=== PATIENT | female | born 1965 | race Caucasian/White ===

== ENCOUNTER 2019-06-20 05:40 | Inpatient (IN) | payer BC ==
[~2019-06-20] VITALS: Ht 170.2 cm; Wt 111.0 kg
[2019-06-20] VITALS (20 sets, daily range): BP systolic 126–174; BP diastolic 58–83; PULSE 83–96; RESP 15–22; Ht 170.2 cm; Wt 111.0 kg
[~2019-06-20 05:40] MED LIST: ALBU8.5H8 INH; BENA40TA56 PO; HYDR-4011 PO; IBUP-1542 PO; LEVO50TA71 PO; METO-448 PO; MONT10TA21 PO; ONDA4TAB8 PO
[2019-06-20] MEDS ORDERED: POLYMYXIN/BACITRACIN 1L IRRIG ONE ×2 (06:55→13:10)
--- NOTE | 2019-06-20 07:08 | PREAC ---
Date/Time of Note Date/Time of Note DATE: 06/20/19 TIME: 07:06 Anesthesia Eval and Record Evaluation Time Pre-Procedure Interview DATE: 06/20/19 TIME: 07:06 Age 54 Sex female NPO: 8 hrs Preoperative diagnosis right ankle oa Planned procedure RIGHT TOTAL ANKLE ARTHROPLASTY Past Medical History Past Medical History: Includes Cardio: HTN Endo: Hypothyroid Pulm: Asthma GI: Obesity Surgery & Anesthesia Issues No known issue Meds Anticoagulation: No Beta Ham within 24 hr: Yes Reported Medications Benazepril Hcl* (Benazepril Hcl*) 40 Mg Tablet, 40 MG PO DAILY, #30 TAB 06/20/19 Montelukast Sodium* (Singulair*) 10 Mg Tablet, 10 MG PO QHS, #30 TAB 06/20/19 Ibuprofen* (Motrin*) 600 Mg Tab, 600 MG PO Q6H PRN for PAIN, TAB 06/20/19 Levothyroxine Sodium* (Levoxyl*) 50 Mcg Tablet, 50 MCG PO BEFORE BREAKFAST, #30 TAB 06/20/19 Metoprolol Tartrate* (Lopressor*) 25 Mg Tab, 25 MG PO BID, #60 TAB 06/20/19 Albuterol Sulfate* (Proair HFA*) 8.5 Gm Hfa.aer.ad, 2 PUFF INH Q4H PRN for WHEEZING AND SOB, #1 INHALER 06/20/19 Current Medications Cefazolin Sodium/ Dextrose 50 ml @ 100 mls/hr PREOP IVPB ; Start 06/20/19 at 06:00; Stop 06/20/19 at 19:00 Meds reviewed: Yes Allergies Coded Allergies: No Known Allergy (Unverified , 06/20/19) Allergies Reviewed: Yes Labs/Studies Labs Reviewed: Reviewed by anesthesiologist test: N/A Studies: ECG (SR), CXR (NAPD) Pre-procedure Exam Last vitals Vital Signs Date Temp Pulse Resp B/P (MAP) Pulse Ox O2 O2 Flow FiO2 Time Delivery Rate 06/20/19 98.0 84 18 174/68 98 05:55 (103) Airway: Adequate mouth opening, Adequate thyromental dist Mallampati: Mallampati II Teeth: Normal Lung: Normal Heart: Normal ASA Physical Status ASA physical status: 2 Emergency: None Planned Anesthetic General/MAC: ETT Nerve block: Femoral (right), Sciatic (right) Planned Pain Management Single shot nerve block, Parenteral pain med Pre-operative Attestations Prior to commencing anesthesia and surgery, the patient was re-evaluated, there was verification of: *The patient's identity *The results of appropriate recent lab work and preoperative vital signs *The above evaluation not changing prior to induction *Anesthetic plan, risk benefits, alternative and complications discussed with patient/family; questions answered; patient/family understands, accepts and wishes to proceed. Rohith Moreira M.D. Jun 20, 2019 07:08
[2019-06-20] MEDS ORDERED: NEOSTIGMINE 3 MG/3 ML SYRINGE ONE (07:12)
[2019-06-20] MEDS ORDERED: GLYCOPYRROLATE 0.4 MG INJ ONE (07:12)
[2019-06-20] MEDS ORDERED: ROCURONIUM 50 MG INJ ONE (07:12)
[2019-06-20] MEDS ORDERED: CEFAZOLIN 1 GM INJ ONE ×2 (07:12→11:40)
[2019-06-20] MEDS ORDERED: PROPOFOL 20 ML ONE (07:12)
[2019-06-20] MEDS ORDERED: DEXAMETHASONE 4 MG/ML 5 ML INJ ONE (07:14)
[2019-06-20] MEDS ORDERED: FENTAnyl 50 MCG/ML VIAL ONE ×2 (07:14→08:32)
[2019-06-20] MEDS ORDERED: MIDAZOLAM 1 MG/ML 2 ML INJ ONE (07:14)
[2019-06-20] MEDS ORDERED: ONDANSETRON 4 MG INJ ONE (07:14)
[2019-06-20] MEDS ORDERED: ROPIVACAINE 0.5 % 30 ML VIAL ONE (07:15)
[2019-06-20] MEDS ORDERED: IPRATROPIUM (NEB) 0.5 MG/2.5 ML AMP HHN PRN (07:30)
[2019-06-20] MEDS ORDERED: DIPHENHYDRAMINE 50 MG INJ IV PRN (07:30)
[2019-06-20] MEDS: LACTATED RINGER'S 1,000 ML IV SCH ×2 (07:30→20:50)
[2019-06-20] MEDS ORDERED: MEPERIDINE 25 MG INJ IV PRN (07:30)
[2019-06-20] MEDS ORDERED: ALBUTEROL 0.083% (NEB) 2.5 MG/3 ML AMP HHN PRN (07:30)
[2019-06-20] MEDS ORDERED: EPHEDrine 25 MG/5 ML SYG IV PRN (07:30)
[2019-06-20] MEDS ORDERED: LABETALOL HCL 20MG INJ IV PRN (07:30)
[2019-06-20] MEDS ORDERED: FENTAnyl 50 MCG/ML VIAL IV PRN ×3 (07:30)
[2019-06-20] MEDS ORDERED: ONDANSETRON 4 MG INJ IV PRN (07:30)
[2019-06-20] MEDS ORDERED: OXYCODONE/ACETAMINOPHEN (5/325) TAB PO PRN ×2 (07:30)
[2019-06-20] MEDS ORDERED: MIDAZOLAM 1 MG/ML 2 ML INJ IV PRN (07:30)
[2019-06-20] MEDS ORDERED: hydrALAzine 20 MG INJ IV PRN ×2 (07:30→18:30)
[2019-06-20] MEDS ORDERED: TRIMETHOBENZAMIDE 100 MG/ML VIAL IM PRN (07:30)
[2019-06-20] MEDS ORDERED: HYDROmorphONE 1 MG/5 ML IV SYRINGE IV PRN ×3 (07:30)
--- NOTE | 2019-06-20 07:32 | HPN ---
Date/Time of Note Date/Time of Note DATE: 06/20/19 TIME: 07:32 Interval H&P Admission Note Pt. seen H&P reviewed: No system changes KATHERYN STAFFORD DPM Jun 20, 2019 07:32
[2019-06-20] MEDS ORDERED: LABETALOL HCL 20MG INJ ONE (09:45)
[2019-06-20] MEDS ORDERED: POLYMYXIN/BACITRACIN 1L IRRIG IRR ONE (11:06)
[2019-06-20] MEDS ORDERED: SUGAMMADEX SODIUM 200 MG/2 ML VIAL IV ONE (12:41)
--- NOTE | 2019-06-20 13:25 | PAC ---
Date/Time of Note Date/Time of Note DATE: 06/20/19 TIME: 13:25 Post-Anesthesia Notes Post-Anesthesia Note Last documented vital signs Vital Signs Date Temp Pulse Resp B/P (MAP) Pulse Ox O2 O2 Flow FiO2 Time Delivery Rate 06/20/19 98.0 84 18 174/68 98 05:55 (103) Activity: WNL Respiratory function: WNL Cardiovascular function: WNL Mental status: Baseline Pain reasonably controlled: Yes Hydration appropriate: Yes Nausea/Vomiting absent: Yes Rohith Moreira M.D. Jun 20, 2019 13:25
--- NOTE | 2019-06-20 13:31 | OPR ---
Date/Time of Note Date/Time of Note DATE: 06/20/19 TIME: 13:31 Operative Report Procedure Date: Jun 20, 2019 Preoperative Diagnosis Severe right ankle degenerative joint disease Right ankle equinus Right ankle pain Right ankle edema Postoperative Diagnosis Severe right ankle degenerative joint disease Right ankle equinus Right ankle pain Right ankle edema Operation/Procedure Performed Right total ankle replacement Use and interpretation of fluoroscopy Application of posterior splint right lower extremity Right Achilles tendon lengthening Surgeon see signature line Resume Writer None Anesthesia Type: general Estimated Blood Loss: 10 - 50 ml's Transfusion none Specimen Bone from the right ankle joint Grafts/Implants none Complications none Pt Condition Post Procedure: stable Disposition: PACU Indications This is a pleasant 54-year-old female patient who has been suffering with severe right ankle degenerative joint disease, pain, disability and gait disturbance for several years getting worse along with equinus deformity of the ankle joint. Proposed surgery is total ankle replacement with tendo Achilles lengthening. Risks and complications of this type of surgery was discussed with patient in great detail. Risks and complications discussed include, but are not limited to, postoperative infection, postoperative pain, chronic pain and disability, hardware failure, malunion, nonunion, delayed union, failure of surgery to correct the problem, need for additional surgical procedures, toenail changes, onychomycosis, deep venous thrombosis, gait disturbance, problems with shoegear, limitation of activities, limb loss and loss of life. Patient understands the discussion and agrees to the procedure. An informed consent was obtained, signed and placed in the chart. No guarantee or warrantee was given or implied as to the outcome of the procedure either in verbal or written form. Procedure Description The patient was seen in the preoperative area. Proposed surgery was discussed with patient in great detail. Opportunity was given to patient to ask questions and all questions were answered. Patient acknowledges understanding of the discussion and agrees to the procedure. The patient was then taken to the operating room and was placed on the operating table in the supine position. Patient was placed under general anesthesia. A thigh tourniquet was applied to the right thigh. The circulating nurse call the timeout and everyone agreed. A 10 pound bag was inserted under the right hip to rotate the foot and ankle. An Esmarch bandage was utilized to exsanguinate the right lower extremity and the tourniquet was inflated to 300 mmHg pressure. Attention was directed to the anterior right ankle. A 12 cm incision was made over the anterior right ankle using a #10 blade. Bleeders were cauterized as necessary. Dissection was deepened carefully with care being taken to identify and protect vital neurovascular structures. Superficial nerves were identified and protected. Dissection continued deep to the anterior retinaculum of the ankle joint. This was incised and the. I went ahead and identified the tibialis anterior tendon, extensor digitorum longus tendon and extensor hallucis longus tendon. I went ahead and I dissected out the neurovascular bundle and protected the neurovascular bundle along with the EHL and EDL laterally and the tibialis anterior medially. Periosteal dissection continued and the ankle joint was dissected and fully exposed. There was significant osteophytic changes noted. There was significant degenerative joint disease noted. There was significant loss of joint space and loss of range of motion. A pin was placed into the tibial tuberosity and the jig for STAR ankle replacement was placed. The cutting guide was placed over the anterior ankle monica int. Intraoperative arthroscopy was used for placement verification. The cutting guide was pinned into place and the distal tibial cut was made. The cutting guide was partially dismantled and I used a osteotome and mallet to complete the cutting guide. All bony remnants were then debrided out of the joint. The joint was prepped for insertion of the talar component. Intraopera tive fluoroscopic guidance was used throughout the procedure. A trial talus was inserted and was found to be fitting very nicely without any gaps. I went ahead and I inserted the talar component at this point and I impacted the talar component onto the talus. Next, a second guide was inserted for the distal tibia drill holes. All instrumentation was then removed along with the pain in the tibial tuberosity. Intraoperative fluoroscopic guidance was used for placement verification. Once verified, 2 large holes were drilled at the distal aspect of the tibia. The tibial plate was then inserted. I trialed a size 6, 7 and 8 Parley. The size 8 Ryann was found to be a good solid interface. Size 8 Parley was inserted. Range of motion was checked and was found to be limited in dorsiflexion. Intraoperative fluoroscopic pictures were obtained. The wound was flushed with copious muscle sterile normal saline. The periosteal layer was closed using 3-0 Vicryl suture. The ankle anterior joint capsule was closed using 2-0 Vicryl. The anterior retinaculum along with the tendon sheaths were closed using 4-0 Vicryl suture. Subcutaneous layer was closed using 4-0 Vicryl suture and the skin was closed using 4-0 Monocryl in subcuticular stitch pattern. Steri-Strips were applied. A temporary OpSite was applied to the incision site. The tourniquet was deflated at this time and prompt hyperemic response was noted to digits of the right foot. The second part of surgery patient will need to be repositioned. Next, the patient was repositioned on the left side lateral for the second portion of the surgery which is the Achilles tendon lengthening. The right foot was then re-scrubbed, prepped and draped in the usual aseptic manner. A second timeout was called by the circulating nurse and again everyone agreed. An Esmarch bandage was utilized to exsanguinate the right lower extremity and the tourniquet was inflated to 300 mmHg pressure. Attention was directed to the posterior aspect of the right lower leg and Achilles tendon area. A 9 cm incision was made directly over the Achilles tendon using a #10 blade. Bleeders were cauterized as necessary. Vital neurovascular structures were identified and protected. Dissection continued to the para-thenar of the Achilles tendon. The peritenon was incised and the tendon was exposed. The tendon was then incised midline and the distal medial and proximal lateral portions were cut as well. Deep tendon was then lengthened about 1 inch which allowed for the ankle to be dorsiflexed to about 15. The tendon was then sutured back in this new position using modified Apolonia suture technique and 2-0 Ethibond suture. Next, the wound was flushed with copious muscle sterile normal saline. The para thenar was reapproximated using 4-0 Vicryl suture. Subcutaneous layer was closed using 4-0 Vicryl suture and the skin was closed using 4-0 Monocryl in simple suture technique. Sterile dressing was applied to the right lower extremity. The tourniquet was deflated at this time and prompt hyperemic response was noted to digits of the right foot. The foot and ankle was placed in a 90 splint with a double splint. The patient tolerate procedure anesthesia well. She was transferred to recovery room with vital signs stable and vascular status intact to right lower extremity. Patient will be admitted to the hospital for pain management for the next couple of days. I have already contacted the hospitalist for admission and orders. Patient is to ray nonweightbearing on the right lower extremity. Jimmy riley will be followed up in the hospital. KATHERYN STAFFORD DPM Jun 20, 2019 13:31
--- NOTE | 2019-06-20 13:31 | SIPON ---
Date/Time of Note Date/Time of Note DATE: 06/20/19 TIME: 13:29 Operative Report Preoperative Diagnosis Severe right ankle degenerative joint disease Right ankle equinus Right ankle pain Right ankle edema Postoperative Diagnosis Severe right ankle degenerative joint disease Right ankle equinus Right ankle pain Right ankle edema Operation/Procedure Performed Right total ankle replacement Use and interpretation of fluoroscopy Application of posterior splint right lower extremity Right Achilles tendon lengthening Surgeon see signature line casino assistant manager None Anesthesia: general Estimated blood loss: 10 - 50 ml's Transfusion Required none Specimen Bone and joint right ankle Grafts/Implants none Complications none KATHERYN STAFFORD DPM Jun 20, 2019 13:31
[2019-06-20] MEDS: CEFAZOLIN 2 GM/50 ML (PMX) 50 ML IVPB SCH (13:34)
--- NOTE | 2019-06-20 18:31 | CONS ---
Assessment/Plan Assessment/Plan Assessment/Plan (Daily) Assessment and plan: 54-year-old female past medical history of hyperthyroidism, hypertension, arthritis, who was brought in for elective right ankle arthro plasty. # Right ankle arthroplasty: Again patient having minimal pain symptoms now -Continue postoperative care per primary podiatry team including pain control medications, labs, fluids, any physical therapy that may be needed # HTN: Presently stable -Monitor, add IV hydralazine as needed # Hyperthyroidism: Continue monitor for now # Prior arthritis- see above, continue physical therapy and pain control medications We will continue to follow along with you. Consultation Date/Type/Reason Admit Date/Time Jun 20, 2019 at 05:40 Date/Time of Note DATE: 06/20/19 TIME: 18:31 Hx of Present Illness 54-year-old female past medical history of hyperthyroidism, hypertension, arthritis, who was brought in for elective right ankle arthroplasty. Patient underwent the procedure earlier today. Apparently this is the third surgery she has had on the right ankle performed. This was performed today by the podiatry team. Patient presently has some right ankle pain symptoms, but presently she denies any upper or lower GI bleeding, nausea vomiting, fever chills, diarrhea constipation, chest pain or shortness of breath. Past Medical History Home Meds Reported Medications Benazepril Hcl* (Benazepril Hcl*) 40 Mg Tablet, 40 MG PO DAILY, #30 TAB 06/20/19 Montelukast Sodium* (Singulair*) 10 Mg Tablet, 10 MG PO QHS, #30 TAB 06/20/19 Ibuprofen* (Motrin*) 600 Mg Tab, 600 MG PO Q6H PRN for PAIN, TAB 06/20/19 Levothyroxine Sodium* (Levoxyl*) 50 Mcg Tablet, 50 MCG PO BEFORE BREAKFAST, #30 TAB 06/20/19 Metoprolol Tartrate* (Lopressor*) 25 Mg Tab, 25 MG PO BID, #60 TAB 06/20/19 Albuterol Sulfate* (Proair HFA*) 8.5 Gm Hfa.aer.ad, 2 PUFF INH Q4H PRN for WHEEZING AND SOB, #1 INHALER 06/20/19 Medications Current Medications Cefazolin Sodium/ Dextrose 50 ml @ 100 mls/hr PREOP IVPB ; Start 06/20/19 at 06:00; Stop 06/20/19 at 19:00 Lactated Ringer's 1,000 ml @ 75 mls/hr [id number] IV ; Start 06/20/19 at 07:30 Cefazolin Sodium 50 ml @ 100 mls/hr ONCE IVPB ; Start 06/20/19 at 20:00; Stop 06/20/19 at 20:29 Oxycodone/ Acetaminophen (Endocet (10/ 325)) 1 tab Q4H PRN PO MODERATE PAIN LEVEL 4-6; Start 06/20/19 at 14:30 Hydralazine HCl (Apresoline) 10 mg Q6H PRN IV ELEVATED BLOOD PRESSURE; Start 06/20/19 at 18:30; Status UNV Morphine Sulfate (morphine) 1 mg Q4H PRN IV SEVERE PAIN LEVEL 7-10; Start 06/20/19 at 18:30; Status UNV Allergies: Coded Allergies: No Known Allergy (Unverified , 06/20/19) Past Surgical History Past Surgical Hx: other (To prior ankle surgeries) Social History Alcohol Use: occasionally Smoking Status: Never smoker Drug Use: none Exam/Review of Systems Exam Vitals Vital Signs Date Temp Pulse Resp B/P (MAP) Pulse Ox O2 O2 Flow FiO2 Time Delivery Rate 06/20/19 98.6 95 16 142/68 97 Nasal 17:00 (92) Cannula Exam Constitutional: lying in bed, no acute distress Head: normocephalic, atraumatic Eyes: EOMI, PERRL Respiratory: clear to auscultation, normal air movement Cardiovascular: S1, S2 heard Gastrointestinal: soft, nontender, nondistended,, no rebound or guarding, normal bowel sounds Extremities: decreased range of motion right lower extremity and ankle area Neuro: No focal deficits Medications Medication Current Medications Cefazolin Sodium/ Dextrose 50 ml @ 100 mls/hr PREOP IVPB ; Start 06/20/19 at 06:00; Stop 06/20/19 at 19:00 Lactated Ringer's 1,000 ml @ 75 mls/hr [id number] IV ; Start 06/20/19 at 07:30 Cefazolin Sodium 50 ml @ 100 mls/hr ONCE IVPB ; Start 06/20/19 at 20:00; Stop 06/20/19 at 20:29 Oxycodone/ Acetaminophen (Endocet (10/ 325)) 1 tab Q4H PRN PO MODERATE PAIN LEVEL 4-6; Start 06/20/19 at 14:30 Hydralazine HCl (Apresoline) 10 mg Q6H PRN IV ELEVATED BLOOD PRESSURE; Start 06/20/19 at 18:30; Status UNV Morphine Sulfate (morphine) 1 mg Q4H PRN IV SEVERE PAIN LEVEL 7-10; Start 06/20/19 at 18:30; Status UNV MIGDALIA MCGOVERN Jun 20, 2019 18:31
[2019-06-20] MEDS: morphine 2 MG INJ IV PRN (18:59)
[2019-06-20] MEDS ORDERED: CEFAZOLIN 1 GM/50 ML (PMX) 50 ML IVPB SCH (20:00)
[2019-06-20] MEDS: OXYCODONE/ACETAMINOPHEN (10/325) TAB PO PRN (20:21)
[2019-06-21] VITALS: BP 137/65; PULSE 81; RESP 18
[2019-06-21] MEDS: OXYCODONE/ACETAMINOPHEN (10/325) TAB PO PRN ×4 (00:48→21:01)
[2019-06-21] MEDS: LACTATED RINGER'S 1,000 ML IV SCH ×2 (00:52→19:29)
[2019-06-21 07:36] VITALS: BP 146/65; PULSE 88; RESP 17
--- NOTE | 2019-06-21 12:24 | PN ---
Date/Time of Note Date/Time of Note DATE: 06/21/19 TIME: 12:22 Assessment/Plan VTE Prophylaxis Risk score (from Nsg)>0 risk: 10 SCD applied (from Nsg): Yes Pharmacological prophylaxis: other Lines/Catheters IV Catheter Type (from Nrsg): Peripheral IV Urinary Cath still in place: No Assessment/Plan Hospital Course S: Patient had no acute events overnight. O: VS - see below PE: Constitutional: lying in bed, no acute distress Head: normocephalic, atraumatic Eyes: EOMI, PERRL Respiratory: clear to auscultation, normal air movement Cardiovascular: S1, S2 heard Gastrointestinal: soft, nontender, nondistended,, no rebound or guarding, normal bowel sounds Extremities: decreased range of motion right lower extremity and ankle area Neuro: No focal deficits Assessment and plan: 54-year-old female past medical history of hyperthyroidism, hypertension, arthritis, who was brought in for elective right ankle arthroplasty. # Right ankle arthroplasty: Postop day #1, worked with physical therapy earlier today. Still improving. -Continue postoperative care per podiatry team including pain control medications, labs, fluids, any physical therapy that may be needed # HTN: Presently stable -Monitor, IV hydralazine as needed # Hyperthyroidism: Continue monitor for now # Prior arthritis- see above, continue physical therapy and pain control medications Dispo: Likely home when cleared by podiatry team and will need home health nursing for a walker which we will order for case management to set up Results 24hrs Laboratory Tests Test 06/21/19 07:17 Lab Scanned Report REFERENCE LAB Exam/Review of Systems Exam Vitals Vital Signs Date Temp Pulse Resp B/P (MAP) Pulse Ox O2 O2 Flow FiO2 Time Delivery Rate 06/21/19 97.9 88 17 146/65 96 07:36 (92) 06/20/19 Nasal 17:00 Cannula Intake and Output 06/20/19 06/20/19 06/21/19 1515:00 23:00 07:00 IntakeIntake Total 2200 ml 250 ml 1300 ml OutputOutput Total 45 ml 350 ml BalanceBalance 2155 ml -100 ml 1300 ml Results Results 24hrs Laboratory Tests Test 06/21/19 07:17 Lab Scanned Report REFERENCE LAB Medications Medication Current Medications Lactated Ringer's 1,000 ml @ 75 mls/hr [id number] IV Last administered on 06/21/19at 00:52; Admin Dose 75 MLS/HR; Start 06/20/19 at 07:30 Oxycodone/ Acetaminophen (Endocet (10/ 325)) 1 tab Q4H PRN PO MODERATE PAIN LEVEL 4-6 Last administered on 06/21/19at 11:18; Admin Dose 1 TAB; Start 06/20/19 at 14:30 Hydralazine HCl (Apresoline) 10 mg Q6H PRN IV ELEVATED BLOOD PRESSURE; Start 06/20/19 at 18:30 Morphine Sulfate (morphine) 1 mg Q4H PRN IV SEVERE PAIN LEVEL 7-10 Last administered on 06/20/19at 18:59; Admin Dose 1 MG; Start 06/20/19 at 18:30 Ondansetron HCl (Zofran Inj) 4 mg Q6H PRN IV NAUSEA AND/OR VOMITING; Start 06/21/19 at 12:30 Acetaminophen (Tylenol Tab) 650 mg Q6H PRN PO MILD PAIN(1-3)OR ELEVATED TEMP; Start 06/21/19 at 12:30 Famotidine (Pepcid) 20 mg DAILY PO ; Start 06/21/19 at 12:30 MIGDALIA MCGOVERN Jun 21, 2019 12:24
[2019-06-21] MEDS ORDERED: ONDANSETRON 4 MG INJ IV PRN (12:30)
[2019-06-21] MEDS ORDERED: ACETAMINOPHEN 325 MG TAB PO PRN (12:30)
[2019-06-21] MEDS: FAMOTIDINE 20 MG TAB PO SCH (13:35)
[2019-06-21] MEDS: morphine 2 MG INJ IV PRN ×2 (13:38→22:16)
[2019-06-21 14:24] VITALS: BP 117/78; PULSE 84; RESP 17
[2019-06-21 19:45] VITALS: BP 171/79; PULSE 83; RESP 18
--- NOTE | 2019-06-21 23:58 | PN ---
Date/Time of Note Date/Time of Note DATE: 06/21/19 TIME: 23:57 Assessment/Plan Lines/Catheters IV Catheter Type (from Nrsg): Peripheral IV Hernandez in Place (from Nrsg): No Assessment/Plan Problems: (1) H/O total ankle replacement (2) Obesity Assessment/Plan Patient to continue nonweightbearing on the right foot. PT to evaluate for nonweightbearing assistance in ambulation. Continue pain management at this time. Subjective 24 Hr Interval Summary Postop day 1 status post right ankle total ankle replacement with tendo Achilles lengthening. Doing well. Reports pain is controlled and denies fever chills nausea or vomiting. Denies chest pain and shortness of breath. Constitutional: no complaints Pain Control: well controlled Exam/Review of Systems Vital Signs Vitals Exam Free Text/Dictation Patient is moderately obese laying supine in bed in no acute distress. Bandaging was removed along with posterior splint. Sutures are intact and incision is well coapted. Edema present. No erythema and no bleeding or pus. Labs reviewed. Imaging reviewed. KATHERYN STAFFORD DPM Jun 21, 2019 23:58
[2019-06-22] MEDS: OXYCODONE/ACETAMINOPHEN (10/325) TAB PO PRN ×4 (02:05→19:44)
[2019-06-22 02:45] VITALS: BP 156/70; PULSE 84; RESP 20
[2019-06-22] MEDS: LACTATED RINGER'S 1,000 ML IV SCH (06:59)
[2019-06-22 07:19] VITALS: BP 159/69; PULSE 81; RESP 20
[2019-06-22] MEDS: FAMOTIDINE 20 MG TAB PO SCH (09:30)
[2019-06-22] MEDS: morphine 2 MG INJ IV PRN ×3 (09:33→22:50)
--- NOTE | 2019-06-22 13:17 | PN ---
Date/Time of Note Date/Time of Note DATE: 06/22/19 TIME: 13:16 Assessment/Plan VTE Prophylaxis Risk score (from Nsg)>0 risk: 8 SCD applied (from Nsg): Yes Pharmacological prophylaxis: other Lines/Catheters IV Catheter Type (from Nrsg): Peripheral IV Urinary Cath still in place: No Assessment/Plan Hospital Course S: Patient worked with physical therapy yesterday and today. Still waiting for official note from the podiatry team. O: VS - see below PE: Constitutional: lying in bed, no acute distress Head: normocephalic, atraumatic Eyes: EOMI, PERRL Respiratory: clear to auscultation, normal air movement Cardiovascular: S1, S2 heard Gastrointestinal: soft, nontender, nondistended,, no rebound or guarding, normal bowel sounds Extremities: decreased range of motion right lower extremity and ankle area Neuro: No focal deficits Assessment and plan: 54-year-old female past medical history of hyperthyroidism, hypertension, arthritis, who was brought in for elective right ankle arthroplasty. # Right ankle arthroplasty: Postop day # 2, worked with physical therapy earlier. Slowly improving. -Continue postoperative care per podiatry team including pain control medications, labs, fluids, any physical therapy that may be needed # HTN: Presently stable -Monitor, IV hydralazine as needed # Hyperthyroidism: Continue monitor for now # Prior arthritis- see above, continue physical therapy and pain control medications Dispo: Likely home when cleared by podiatry team and will need home health nurs ing for a walker which we will order for case management to set up Result Diagram: 06/21/19 1317 06/21/19 1317 Results 24hrs Laboratory Tests Test 06/21/19 13:17 06/21/19 13:18 White Blood Count 12.4 H Red Blood Count 3.59 L Hemoglobin 9.2 L Hematocrit 29.7 L Mean Corpuscular Volume 82.7 Mean Corpuscular Hemoglobin 25.6 L Mean Corpuscular Hemoglobin Concent 31.0 L Red Cell Distribution Width 16.7 H Platelet Count 174 Mean Platelet Volume 10.3 Immature Granulocytes % 0.300 Neutrophils % 79.4 H Lymphocytes % 16.3 Monocytes % 3.8 Eosinophils % 0.0 Basophils % 0.2 Nucleated Red Blood Cells % 0.0 Immature Granulocytes # 0.040 H Neutrophils # 9.8 H Lymphocytes # 2.0 Monocytes # 0.5 Eosinophils # 0.0 Basophils # 0.0 Nucleated Red Blood Cells # 0.0 Sodium Level 140 Potassium Level 3.7 Chloride Level 106 Carbon Dioxide Level 27 Anion Gap 7 Blood Urea Nitrogen 11 Creatinine 0.53 Est Glomerular Filtrat Rate mL/min > 60 Glucose Level 115 Calcium Level 8.4 Phosphorus Level 3.3 Magnesium Level 2.0 Exam/Review of Systems Exam Vitals Vital Signs Date Temp Pulse Resp B/P (MAP) Pulse Ox O2 O2 Flow FiO2 Time Delivery Rate 06/22/19 98.5 81 20 159/69 96 07:19 (99) 06/20/19 Nasal 17:00 Cannula Intake and Output 06/21/19 06/21/19 06/22/19 1515:00 23:00 07:00 IntakeIntake Total 700 ml 700 ml BalanceBalance 700 ml 700 ml Results Results 24hrs Laboratory Tests Test 06/21/19 13:17 06/21/19 13:18 White Blood Count 12.4 H Red Blood Count 3.59 L Hemoglobin 9.2 L Hematocrit 29.7 L Mean Corpuscular Volume 82.7 Mean Corpuscular Hemoglobin 25.6 L Mean Corpuscular Hemoglobin Concent 31.0 L Red Cell Distribution Width 16.7 H Platelet Count 174 Mean Platelet Volume 10.3 Immature Granulocytes % 0.300 Neutrophils % 79.4 H Lymphocytes % 16.3 Monocytes % 3.8 Eosinophils % 0.0 Basophils % 0.2 Nucleated Red Blood Cells % 0.0 Immature Granulocytes # 0.040 H Neutrophils # 9.8 H Lymphocytes # 2.0 Monocytes # 0.5 Eosinophils # 0.0 Basophils # 0.0 Nucleated Red Blood Cells # 0.0 Sodium Level 140 Potassium Level 3.7 Chloride Level 106 Carbon Dioxide Level 27 Anion Gap 7 Blood Urea Nitrogen 11 Creatinine 0.53 Est Glomerular Filtrat Rate mL/min > 60 Glucose Level 115 Calcium Level 8.4 Phosphorus Level 3.3 Magnesium Level 2.0 Medications Medication Current Medications Lactated Ringer's 1,000 ml @ 75 mls/hr [id number] IV Last administered on 06/22/19at 06:59; Admin Dose 75 MLS/HR; Start 06/20/19 at 07:30 Oxycodone/ Acetaminophen (Endocet (10/ 325)) 1 tab Q4H PRN PO MODERATE PAIN LEVEL 4-6 Last administered on 06/22/19 06:54; Admin Dose 1 TAB; Start 06/20/19 at 14:30 Hydralazine HCl (Apresoline) 10 mg Q6H PRN IV ELEVATED BLOOD PRESSURE Last administered on 06/21/19at 21:08; Admin Dose 10 MG; Start 06/20/19 at 18:30 Morphine Sulfate (morphine) 1 mg Q4H PRN IV SEVERE PAIN LEVEL 7-10 Last admini stered on 06/22/19at 09:33; Admin Dose 1 MG; Start 06/20/19 at 18:30 Ondansetron HCl (Zofran Inj) 4 mg Q6H PRN IV NAUSEA AND/OR VOMITING; Start 06/21/19 at 12:30 Acetaminophen (Tylenol Tab) 650 mg Q6H PRN PO MILD PAIN(1-3)OR ELEVATED TEMP; Start 06/21/19 at 12:30 Famotidine (Pepcid) 20 mg DAILY PO Last administered on 06/22/19at 09:30; Admin Dose 20 MG; Start 06/21/19 at 12:30 MIGDALIA MCGOVERN Jun 22, 2019 13:17
[2019-06-22 15:51] VITALS: BP 164/72; PULSE 84; RESP 20
[2019-06-22 19:47] VITALS: BP 145/80; PULSE 74; RESP 18
[2019-06-23] MEDS: OXYCODONE/ACETAMINOPHEN (10/325) TAB PO PRN ×4 (02:27→17:00)
[2019-06-23 02:43] VITALS: BP 135/80; PULSE 80; RESP 18
[2019-06-23 08:28] VITALS: BP 142/69; PULSE 78; RESP 20
[2019-06-23] MEDS: FAMOTIDINE 20 MG TAB PO SCH (09:23)
--- NOTE | 2019-06-23 11:14 | PDOCDIS ---
Discharge Instructions CONDITION [id number] Patient Condition: [id number] Stable HOME CARE INSTRUCTIONS: [id number] Diet Instructions: [id number] Low Fat /Cholesterol ACTIVITY: [id number] Activity Restrictions: [id number] Slowly Increase Activity Rest between Activity Avoid heavy lifting FOLLOW UP/APPOINTMENTS Follow-up Plan Please take your medications as prescribed, see your doctor in the clinic in the next 1 week. MIGDALIA MCGOVERN Jun 23, 2019 11:14
--- NOTE | 2019-06-23 11:19 | DS ---
Date/Time of Note Date/Time of Note DATE: 06/23/19 TIME: 11:18 Discharge Summary Admission/Discharge Info Admit Date/Time Jun 20, 2019 at 05:40 Discharge Date/Time Discharge Diagnosis # Right ankle arthroplasty: Postop day # 3 # HTN: Presently stable # Hyperthyroidism: Continue monitor for now # Prior arthritis- see above, continue physical therapy and pain control medications Patient Condition: Stable Procedures Date/Time of Note Date/Time of Note DATE: 06/20/19 TIME: 13:31 Operative Report Procedure Date: Jun 20, 2019 Preoperative Diagnosis Severe right ankle degenerative joint disease Right ankle equinus Right ankle pain Right ankle edema Postoperative Diagnosis Severe right ankle degenerative joint disease Right ankle equinus Right ankle pain Right ankle edema Operation/Procedure Performed Right total ankle replacement Use and interpretation of fluoroscopy Application of posterior splint right lower extremity Right Achilles tendon lengthening Hospital Course Patient had the operation performed her ankle. After she was admitted to the medical surgical unit. She was followed by the physical therapist and the manager hematology during her hospital stay. Signs were monitored as well. She was able to ambulate with assistance, tolerated diet. Vital signs and labs remained stable. After getting clearance from the retail wireless sales consultant teams she will be discharged home today in improved condition. She will be going with appointment with that the shelter case manager setting up. See below for full list of discharge medications. Home Meds Active Scripts Hydrocodone/Acetaminophen ([place] 5-325 Tablet) 1 Each Tablet, 1 EACH PO Q6, #20 TAB Prov:MIGDALIA MCGOVERN S. 06/23/19 Ondansetron Hcl* (Zofran*) 4 Mg Tablet, 4 MG PO Q6H PRN for NAUSEA AND OR VOMITING, #20 TAB Prov:MIGDALIA MCGOVERN S. 06/23/19 Reported Medications Benazepril Hcl* (Benazepril Hcl*) 40 Mg Tablet, 40 MG PO DAILY, #30 TAB 06/20/19 Montelukast Sodium* (Singulair*) 10 Mg Tablet, 10 MG PO QHS, #30 TAB 06/20/19 Ibuprofen* (Motrin*) 600 Mg Tab, 600 MG PO Q6H PRN for PAIN, TAB 06/20/19 Levothyroxine Sodium* (Levoxyl*) 50 Mcg Tablet, 50 MCG PO BEFORE BREAKFAST, #30 TAB 06/20/19 Metoprolol Tartrate* (Lopressor*) 25 Mg Tab, 25 MG PO BID, #60 TAB 06/20/19 Albuterol Sulfate* (Proair HFA*) 8.5 Gm Hfa.aer.ad, 2 PUFF INH Q4H PRN for WHEEZING AND SOB, #1 INHALER 06/20/19 Follow-up Plan Please take your medications as prescribed, see your doctor in the clinic in the next 1 week. Primary Care Provider Not On Staff Doctor Time spent on discharge: > 30 minutes MIGDALIA MCGOVERN Jun 23, 2019 11:19
[2019-06-23 14:06] VITALS: BP 172/72; PULSE 79; RESP 20
== END 2019-06-23 17:00 | disposition home health service (06) | DRG 469 ==
LOC: REC 05:40 → EDSTATUS 07:30 → MS1 14:12
PROVIDERS: ADMIT Podiatrist Foot & Ankle Surgery; ATTEND Hospitalist
PROC: 0L8S0ZZ Division of Right Ankle Tendon, Open Approach (ICD-10-PCS; 2019-06-20)
PROC: 0SRF0JA Replacement of Right Ankle Joint with Synthetic Substitute, Uncemented, Open Approach (ICD-10-PCS; principal; 2019-06-20 07:30)
DX: M19.071 Primary osteoarthritis, right ankle and foot (principal); M21.6X1 Other acquired deformities of right foot; M25.471 Effusion, right ankle; I10 Essential (primary) hypertension; E66.01 Morbid (severe) obesity due to excess calories; E05.90 Thyrotoxicosis, unspecified without thyrotoxic crisis or storm; Z68.38 Body mass index [BMI] 38.0-38.9, adult
CPT/HCPCS: 80048; 83735; 84100; 84703; 85025; 88304; 88311; 97116; 97162; 97530; J0360; J0690; J1100; J1170; J2175; J2250; J2270; J2405; J2710; J2795; J3010; J7120